=== PATIENT | male | born 1940 | race African-American/Black ===

== ENCOUNTER 2017-05-31 18:52 | Emergency (ER) | payer MEDICARE ==
[~2017-05-31] VITALS: Ht 185.4 cm; Wt 91.0 kg
[2017-05-31] MEDS ORDERED: ACETAMINOPHEN 325MG TABLET PO ONE (21:00)
[2017-05-31] MEDS ORDERED: LEVOFLOXACIN 750MG PREMIX 150 ML IV SCH (22:28)
[2017-05-31 22:30] VITALS: BP 131/62
[2017-05-31] MEDS ORDERED: LEVOFLOXACIN 250MG TABLET PO ONE (22:45)
== END 2017-05-31 22:51 | disposition home or self-care (01) ==
LOC: ER 19:34
DX: N45.1 Epididymitis (principal); N45.2 Orchitis; N43.3 Hydrocele, unspecified; Z88.5 Allergy status to narcotic agent
CPT/HCPCS: 76870; 93976; 99284

== ENCOUNTER 2018-11-21 14:27 | Inpatient (IN) | payer MEDICARE, OTHER ==
[~2018-11-21] VITALS: Ht 182.9 cm; Wt 94.3 kg
[2018-11-21 15:41] LABS: BASOPHILS % 0.6 % (0.0-2.0); EOSINOPHILS % 0.2 % (0.0-5.0); HEMATOCRIT. 43.2 % (42.0-52.0); HEMOGLOBIN. 14.3 g/dL (14.0-18.0); MEAN CORPUSCULAR HEMOGLOBIN 28.5 pg (28.0-32.0); MEAN PLATELET VOLUME 8.2 fl (7.4-10.4); MONOCYTES % 7.4 % (2.0-8.0); NEUTROPHILS % 82.8 % (40.0-76.0); PLATELET 299 x1000/uL (130-400); RED BLOOD CELL COUNT 5.02 mill/uL (4.7-6.1)
[2018-11-21 15:44] LABS: CHLORIDE 113 mEq/L (98-107)
[2018-11-21] MEDS ORDERED: DILTIAZEM HCL 90MG TABLET PO ONE (16:15)
[2018-11-21] MEDS ORDERED: DILTIAZEM HCL 5MG/ML 5ML VIAL IV ONE (16:15)
[2018-11-21] MEDS ORDERED: ASPIRIN 81MG TABLET PO ONE (17:15)
[2018-11-21 20:10] VITALS: BP 124/72
[2018-11-21 20:20] VITALS: BP 124/72
[2018-11-21] MEDS ORDERED: CLONIDINE 0.1MG TABLET PO PRN (21:45)
[2018-11-22] VITALS: BP 121/67
[2018-11-22] MEDS: ZOLPIDEM TARTRATE 5MG TABLET PO PRN (00:13)
[2018-11-22] MEDS: DILTIAZEM HCL 30MG TABLET PO SCH ×2 (00:13→06:38)
[2018-11-22 00:14] LABS: CREATINE KINASE MB FRACTION 4.7 ng/mL (0.5-3.6)
[2018-11-22] MEDS ORDERED: DEXTROSE 50% WATER 50ML SYRINGE IV PRN (03:00)
[2018-11-22 04:00] VITALS: BP 130/70
[2018-11-22] MEDS: BLOOD SUGAR DIAGNOSTIC STRIP TEST SCH ×4 (06:39→20:54)
[2018-11-22] MEDS: INSULIN LISPRO 100 UNITS/ML SUBCUT SCH ×4 (07:50→20:54)
[2018-11-22 08:00] VITALS: BP 126/60
[2018-11-22 08:13] LABS: CREATINE KINASE MB FRACTION 4.1 ng/mL (0.5-3.6)
[2018-11-22] MEDS: ENOXAPARIN 40MG/0.4ML SYR SUBCUT SCH (08:59)
[2018-11-22 12:00] VITALS: BP 140/69
[2018-11-22 16:00] VITALS: BP 115/63
[2018-11-22 20:00] VITALS: BP 118/77
[2018-11-22] MEDS: METOPROLOL TARTRATE 25MG TABLET PO SCH (20:42)
[2018-11-23] VITALS: BP 126/66
[2018-11-23] MEDS: ZOLPIDEM TARTRATE 5MG TABLET PO PRN (00:29)
[2018-11-23] MEDS ORDERED: HALOPERIDOL LACTATE 5MG/ML VIAL IM NR (02:15)
[2018-11-23] MEDS ORDERED: DIPHENHYDRAMINE 50MG/ML VIAL IV PRN (02:15)
[2018-11-23 04:00] VITALS: BP 130/69
[2018-11-23] MEDS: BLOOD SUGAR DIAGNOSTIC STRIP TEST SCH ×2 (06:27→12:20)
[2018-11-23 07:03] LABS: BASOPHILS % 1.1 % (0.0-2.0); EOSINOPHILS % 5.1 % (0.0-5.0); HEMATOCRIT. 38.2 % (42.0-52.0); HEMOGLOBIN. 12.9 g/dL (14.0-18.0); LYMPHOCYTES % 15.1 % (20.0-50.0); MEAN CORPUSCULAR HEMOGLOBIN 28.7 pg (28.0-32.0); MEAN CORPUSCULAR VOLUME 84.9 fL (80.0-94.0); MEAN PLATELET VOLUME 8.6 fl (7.4-10.4); MONOCYTES % 8.4 % (2.0-8.0); NEUTROPHILS % 70.3 % (40.0-76.0); PLATELET 255 x1000/uL (130-400); RED CELL DISTRIBUTION WIDTH 15.9 % (11.6-14.6)
[2018-11-23] MEDS: INSULIN LISPRO 100 UNITS/ML SUBCUT SCH ×2 (07:47→12:50)
[2018-11-23 08:00] VITALS: BP_SYST 119; BP_SYST 153; BP_DIAS 53; BP_DIAS 64
[2018-11-23] MEDS: ENOXAPARIN 40MG/0.4ML SYR SUBCUT SCH (09:14)
[2018-11-23] MEDS: METOPROLOL TARTRATE 25MG TABLET PO SCH (09:14)
[2018-11-23 12:00] VITALS: BP 130/77
== END 2018-11-23 15:55 | disposition left against medical advice (07) | DRG 683 ==
LOC: ER 14:27 → 6WST 17:15 → EDBEDREQ 17:17 → ENRESERV 18:50
PROVIDERS: ADMIT Internal Medicine; ATTEND Internal Medicine
DX: N17.9 Acute kidney failure, unspecified (principal); M62.82 Rhabdomyolysis; I45.2 Bifascicular block; R07.89 Other chest pain; Z53.21 Procedure and treatment not carried out due to patient leaving prior to being seen by health care provider; I48.91 Unspecified atrial fibrillation; E87.8 Other disorders of electrolyte and fluid balance, not elsewhere classified; N18.2 Chronic kidney disease, stage 2 (mild); Z87.891 Personal history of nicotine dependence; Z98.84 Bariatric surgery status
CPT/HCPCS: 36415; 71045; 80048; 80061; 82550; 82553; 82962; 83036; 83735; 83880; 84484; 93005; 93306; 96374; 99285; J1200; J1630; J1650; J3490

== ENCOUNTER 2018-11-26 03:31 | Emergency (ER) | payer MEDICARE, OTHER ==
[~2018-11-26] VITALS: Ht 167.6 cm; Wt 94.0 kg
[2018-11-26 04:32] LABS: HEMATOCRIT 42.3 % (42.0-52.0); HEMOGLOBIN 14.1 g/dL (14.0-18.0); MEAN CORPUSCULAR HEMOGLOBIN 28.7 pg (28.0-32.0); MEAN CORPUSCULAR VOLUME 85.8 fL (80.0-94.0); PLATELET 324 x1000/uL (130-400); RED BLOOD CELL COUNT 4.93 mill/uL (4.7-6.1); RED CELL DISTRIBUTION WIDTH 16.3 % (11.6-14.6)
[2018-11-26 04:39] LABS: CHLORIDE 113 mEq/L (98-107)
[2018-11-26 05:24] VITALS: BP 123/68
== END 2018-11-26 05:25 | disposition home or self-care (01) ==
LOC: ER 03:31
DX: R00.2 Palpitations (principal)
CPT/HCPCS: 36415; 85027; 93005; 99284

== ENCOUNTER 2018-12-22 10:40 | Inpatient (IN) | payer MEDICARE, OTHER ==
[~2018-12-22] VITALS: Ht 188 cm; Wt 83.9 kg
[2018-12-22] VITALS (41 sets, daily range): BP systolic 75–148; BP diastolic 36–76
[2018-12-22] MEDS ORDERED: HALOPERIDOL LACTATE 5MG/ML VIAL IM ONE ×2 (11:30→14:15)
[2018-12-22] MEDS ORDERED: SODIUM CHLORIDE 0.9% 1000ML BAG (SEPSIS BOLUS) IV ONE (11:30)
[2018-12-22] MEDS ORDERED: LORAZEPAM 2MG/ML CPJ IM ONE (11:30)
[2018-12-22] MEDS ORDERED: DEXT 5%/0.45% NACL 500ML 1,000 ML IV ONE (11:45)
[2018-12-22 12:07] LABS: BASOPHILS % 0.4 % (0.0-2.0); HEMATOCRIT. 45.4 % (42.0-52.0); HEMOGLOBIN. 15.1 g/dL (14.0-18.0); LYMPHOCYTES % 7.5 % (20.0-50.0); MEAN CORPUSCULAR HEMOGLOBIN 28.5 pg (28.0-32.0); MEAN CORPUSCULAR VOLUME 85.9 fL (80.0-94.0); MEAN PLATELET VOLUME 8.3 fl (7.4-10.4); MONOCYTES % 6.1 % (2.0-8.0); PLATELET 336 x1000/uL (130-400); RED BLOOD CELL COUNT 5.29 mill/uL (4.7-6.1); RED CELL DISTRIBUTION WIDTH 17.4 % (11.6-14.6)
[2018-12-22 12:15] LABS: INR 2.2; PROTHROMBIN TIME 22.1 sec (9.6-11.0)
[2018-12-22 12:16] LABS: CHLORIDE 126 mEq/L (98-107)
[2018-12-22 12:19] LABS: ETHANOL BLOOD < 10 mg/dL
[2018-12-22 12:22] LABS: CLARITY URINE CLEAR (CLEAR); COLOR URINE YELLOW (YELLOW); KETONES URINE 2+ (NEGATIVE); LEUKOCYTE ESTERASE URINE NEGATIVE (NEGATIVE); NITRITE URINE NEGATIVE (NEGATIVE); OCCULT BLOOD URINE NEGATIVE (NEGATIVE); PROTEIN URINE NEGATIVE (NEGATIVE); SPECIFIC GRAVITY URINE 1.016 (1.005-1.030); UROBILINOGEN URINE 0.2 E.U./dL (0.2-1.0)
[2018-12-22] MEDS ORDERED: SODIUM BICARBONATE 8.4% 1 MEQ/ML 50ML SYR IV ONE (12:45)
[2018-12-22 13:03] LABS: *AMPHETAMINES SCREEN URINE NEGATIVE (NEGATIVE); *BARBITURATES SCREEN URINE NEGATIVE (NEGATIVE); *BENZODIAZEPINES SCREEN URINE NEGATIVE (NEGATIVE); *COCAINE SCREEN URINE NEGATIVE (NEGATIVE); METHADONE URINE SCREEN NEGATIVE (NEGATIVE); OPIATES URINE SCREEN NEGATIVE (NEGATIVE)
[2018-12-22 13:05] LABS: CANNABINOID URINE SCREEN NEGATIVE (NEGATIVE); PHENCYCLIDINE URINE SCREEN NEGATIVE (NEGATIVE)
[2018-12-22 13:22] LABS: BG BASE EXCESS -13.9 mmol/L (-2.0-2.0); BG CARBOXYHEMOGLOBIN 0.5 % (0.5-1.5); BG DEOXYHEMOGLOBIN 2.3 % (0.0-5.0); BG FRACTION INSPIRED OXYGEN 21; BG HCO3 ACT 7.4 mmol/L (22.0-26.0); BG METHEMOGLOBIN 0.2 % (0.0-1.5); BG OXYGEN SATURATION 97.7 % (92.0-98.5); BG PH 7.408 (7.350-7.450); BG PO2 103.3 mmHg (75.0-100.0); BG SAMPLE SITE RIGHT BRACHIAL; BG TOTAL HEMOGLOBIN 13.6 g/dL (12.0-18.0); BG VENT MODE ROOM AIR
[2018-12-22 13:55] LABS: CHLORIDE 129 mEq/L (98-107)
[2018-12-22] MEDS ORDERED: LIDOCAINE HCL 1% 20ML VIAL (Pyxis) INJ ONE (14:04)
[2018-12-22] MEDS ORDERED: SODIUM BICARBONATE 4% (2.4MEQ) 5ML VIAL IV ONE (14:04)
[2018-12-22] MEDS ORDERED: LORAZEPAM 2MG/ML CPJ IV ONE (14:15)
[2018-12-22] MEDS ORDERED: SODIUM BICARBONATE 150 MEQ in DEXTROSE 5% WATER 1,000 ML IV SCH (14:30)
[2018-12-22] MEDS ORDERED: ONDANSETRON HCL 4MG/2ML INJ IV PRN (14:30)
[2018-12-22] MEDS: DEXT 5%/0.45% NACL 1000ML 1,000 ML IV SCH (15:08)
[2018-12-22] MEDS: PANTOPRAZOLE SODIUM 40 MG/VIAL IV SCH (17:32)
[2018-12-22] MEDS: SODIUM BICARBONATE 150 MEQ in DEXTROSE 5% WATER 1,000 ML IV SCH (17:54)
[2018-12-22 19:44] LABS: CLARITY URINE CLEAR (CLEAR); COLOR URINE YELLOW (YELLOW); KETONES URINE 1+ (NEGATIVE); LEUKOCYTE ESTERASE URINE 2+ (NEGATIVE); NITRITE URINE NEGATIVE (NEGATIVE); OCCULT BLOOD URINE NEGATIVE (NEGATIVE); PROTEIN URINE NEGATIVE (NEGATIVE); SPECIFIC GRAVITY URINE 1.016 (1.005-1.030); UROBILINOGEN URINE 0.2 E.U./dL (0.2-1.0)
[2018-12-22] MEDS ORDERED: NOREPINEPHRINE 16 MG in DEXT 5% WATER 234 ML IV PRN (21:01)
[2018-12-22] MEDS: LORAZEPAM 2MG/ML CPJ IV PRN (22:30)
[2018-12-22 22:57] LABS: CHLORIDE 114 mEq/L (98-107)
[2018-12-23] VITALS (59 sets, daily range): BP systolic 87–138; BP diastolic 51–105
[2018-12-23] MEDS: SODIUM BICARBONATE 150 MEQ in DEXTROSE 5% WATER 1,000 ML IV SCH ×2 (00:09→06:07)
[2018-12-23] MEDS ORDERED: POTASSIUM CHLORIDE INJ 40 MEQ in DEXT 5% WATER 500 ML IV NR (02:00)
[2018-12-23] MEDS: LORAZEPAM 2MG/ML CPJ IV PRN ×3 (03:14→15:15)
[2018-12-23 05:44] LABS: BASOPHILS % 0.3 % (0.0-2.0); HEMATOCRIT. 36.8 % (42.0-52.0); HEMOGLOBIN. 12.6 g/dL (14.0-18.0); LYMPHOCYTES % 7.3 % (20.0-50.0); MEAN CORPUSCULAR HEMOGLOBIN 28.7 pg (28.0-32.0); MEAN PLATELET VOLUME 8.5 fl (7.4-10.4); MONOCYTES % 9.2 % (2.0-8.0); NEUTROPHILS % 83.2 % (40.0-76.0); PLATELET 259 x1000/uL (130-400); RED BLOOD CELL COUNT 4.39 mill/uL (4.7-6.1); RED CELL DISTRIBUTION WIDTH 17.7 % (11.6-14.6)
[2018-12-23 05:47] LABS: PROTHROMBIN TIME 20.1 sec (9.6-11.0)
[2018-12-23 05:50] LABS: CHLORIDE 112 mEq/L (98-107)
[2018-12-23] MEDS ORDERED: POTASSIUM CHLORIDE 20MEQ/PACKET PO NR (08:00)
[2018-12-23 08:02] LABS: BG FRACTION INSPIRED OXYGEN 21
[2018-12-23 08:11] LABS: BG SAMPLE SITE Left Radial
[2018-12-23 08:26] LABS: BG PCO2 16.3 mmHg (35.0-45.0)
[2018-12-23 08:27] LABS: BG PO2 100.7 mmHg (75.0-100.0)
[2018-12-23 08:28] LABS: BG BASE EXCESS -8.5 mmol/L (-2.0-2.0); BG HCO3 ACT 12.1 mmol/L (22.0-26.0)
[2018-12-23 08:29] LABS: BG TOTAL HEMOGLOBIN 12.6 g/dL (12.0-18.0)
[2018-12-23 08:30] LABS: BG OXYGEN SATURATION 97.4 % (92.0-98.5)
[2018-12-23 08:31] LABS: BG CARBOXYHEMOGLOBIN 0.3 % (0.5-1.5); BG METHEMOGLOBIN 0.1 % (0.0-1.5)
[2018-12-23 08:32] LABS: BG DEOXYHEMOGLOBIN 2.6 % (0.0-5.0)
[2018-12-23 08:39] LABS: BG CARBOXYHEMOGLOBIN 0.4 % (0.5-1.5); BG DEOXYHEMOGLOBIN 6.5 % (0.0-5.0); BG FRACTION INSPIRED OXYGEN 21; BG HCO3 ACT 31.3 mmol/L (22.0-26.0); BG METHEMOGLOBIN 0.1 % (0.0-1.5); BG OXYGEN SATURATION 93.5 % (92.0-98.5); BG PCO2 34.6 mmHg (35.0-45.0); BG PH 7.574 (7.350-7.450); BG PO2 62.1 mmHg (75.0-100.0); BG SAMPLE SITE RIGHT BRACHIAL; BG TOTAL HEMOGLOBIN 12.7 g/dL (12.0-18.0); BG VENT MODE ROOM AIR
[2018-12-23] MEDS: PANTOPRAZOLE SODIUM 40 MG/VIAL IV SCH ×2 (09:31→10:55)
[2018-12-23] MEDS ORDERED: POTASSIUM CHLORIDE INJ 40 MEQ in DEXT 5% WATER 250 ML IV NR (10:00)
[2018-12-23] MEDS: DEXT 5%/0.45% NACL 1000ML 1,000 ML IV SCH ×2 (13:09→23:42)
[2018-12-23] MEDS: HALOPERIDOL LACTATE 5MG/ML VIAL IM PRN (23:34)
[2018-12-24] VITALS (32 sets, daily range): BP systolic 85–187; BP diastolic 49–113
[2018-12-24 08:24] LABS: BASOPHILS % 0.3 % (0.0-2.0); EOSINOPHILS % 1.5 % (0.0-5.0); HEMATOCRIT. 37.8 % (42.0-52.0); HEMOGLOBIN. 12.5 g/dL (14.0-18.0); LYMPHOCYTES % 7.6 % (20.0-50.0); MEAN CORPUSCULAR HEMOGLOBIN 28.7 pg (28.0-32.0); MEAN CORPUSCULAR VOLUME 86.4 fL (80.0-94.0); MEAN PLATELET VOLUME 8.3 fl (7.4-10.4); MONOCYTES % 10.9 % (2.0-8.0); NEUTROPHILS % 79.7 % (40.0-76.0); PLATELET 232 x1000/uL (130-400); RED BLOOD CELL COUNT 4.37 mill/uL (4.7-6.1); RED CELL DISTRIBUTION WIDTH 17.7 % (11.6-14.6)
[2018-12-24] MEDS: PANTOPRAZOLE SODIUM 40 MG/VIAL IV SCH (08:32)
[2018-12-24] MEDS: HALOPERIDOL LACTATE 5MG/ML VIAL IM PRN ×2 (08:32→14:19)
[2018-12-24] MEDS: DEXTROSE 5% WATER 1,000 ML IV SCH (10:00)
[2018-12-24] MEDS: LORAZEPAM 2MG/ML CPJ IV PRN ×2 (10:00→14:19)
[2018-12-24] MEDS ORDERED: POTASSIUM CHLORIDE INJ 40 MEQ in DEXT 5% WATER 250 ML IV NR (10:00)
[2018-12-24] MEDS ORDERED: THIAMINE HCL 100 MG in SODIUM CHLORIDE 0.9% 49 ML IV SCH (21:00)
[2018-12-25] VITALS (16 sets, daily range): BP systolic 94–155; BP diastolic 55–95
[2018-12-25] MEDS: LORAZEPAM 2MG/ML CPJ IV PRN ×4 (00:32→15:34)
[2018-12-25] MEDS: DEXTROSE 5% WATER 1,000 ML IV SCH ×2 (02:34→17:52)
[2018-12-25 06:12] LABS: BASOPHILS % 0.4 % (0.0-2.0); EOSINOPHILS % 3.7 % (0.0-5.0); HEMATOCRIT. 36.5 % (42.0-52.0); LYMPHOCYTES % 13.9 % (20.0-50.0); MEAN CORPUSCULAR HEMOGLOBIN 28.4 pg (28.0-32.0); MEAN CORPUSCULAR VOLUME 86.5 fL (80.0-94.0); MEAN PLATELET VOLUME 8.3 fl (7.4-10.4); MONOCYTES % 8.9 % (2.0-8.0); NEUTROPHILS % 73.1 % (40.0-76.0); PLATELET 203 x1000/uL (130-400); RED BLOOD CELL COUNT 4.22 mill/uL (4.7-6.1); RED CELL DISTRIBUTION WIDTH 17.5 % (11.6-14.6)
[2018-12-25] MEDS: HALOPERIDOL LACTATE 5MG/ML VIAL IM PRN ×2 (08:47→17:24)
[2018-12-25] MEDS: PANTOPRAZOLE SODIUM 40 MG/VIAL IV SCH (08:47)
[2018-12-25] MEDS ORDERED: POTASSIUM CHLORIDE INJ 40 MEQ in DEXT 5% WATER 250 ML IV NR (10:00)
[2018-12-26] VITALS (12 sets, daily range): BP systolic 109–156; BP diastolic 60–100
[2018-12-26] MEDS: HALOPERIDOL LACTATE 5MG/ML VIAL IM PRN (00:43)
[2018-12-26] MEDS: LORAZEPAM 2MG/ML CPJ IV PRN (06:27)
[2018-12-26 06:42] LABS: BASOPHILS % 0.5 % (0.0-2.0); EOSINOPHILS % 5.3 % (0.0-5.0); HEMOGLOBIN. 12.1 g/dL (14.0-18.0); LYMPHOCYTES % 13.6 % (20.0-50.0); MEAN CORPUSCULAR HEMOGLOBIN 28.5 pg (28.0-32.0); MEAN CORPUSCULAR VOLUME 87.6 fL (80.0-94.0); MEAN PLATELET VOLUME 8.6 fl (7.4-10.4); NEUTROPHILS % 71.6 % (40.0-76.0); PLATELET 198 x1000/uL (130-400); RED BLOOD CELL COUNT 4.23 mill/uL (4.7-6.1); RED CELL DISTRIBUTION WIDTH 17.2 % (11.6-14.6)
[2018-12-26 07:03] LABS: PHOSPHORUS 1.9 mg/dL (2.5-4.9)
[2018-12-26] MEDS: FAMOTIDINE 20MG/2ML VIAL IV SCH (09:05)
[2018-12-26] MEDS: DEXTROSE 5% WATER 1,000 ML IV SCH (09:06)
[2018-12-26] MEDS ORDERED: POTASSIUM PHOS,M-BASIC-D-BASIC 15 MMOL in DEXT 5% WATER 245 ML IV NR (11:00)
[2018-12-26] MEDS: QUETIAPINE FUMARATE 25MG TABLET PO SCH (20:47)
[2018-12-26] MEDS: RISPERIDONE 0.5MG TABLET PO SCH (20:47)
[2018-12-27] VITALS (12 sets, daily range): BP systolic 95–145; BP diastolic 54–90
[2018-12-27 08:28] LABS: BASOPHILS % 0.5 % (0.0-2.0); EOSINOPHILS % 3.7 % (0.0-5.0); HEMATOCRIT. 36.7 % (42.0-52.0); HEMOGLOBIN. 12.1 g/dL (14.0-18.0); LYMPHOCYTES % 12.7 % (20.0-50.0); MEAN CORPUSCULAR HEMOGLOBIN 28.2 pg (28.0-32.0); MEAN CORPUSCULAR VOLUME 85.8 fL (80.0-94.0); MEAN PLATELET VOLUME 7.9 fl (7.4-10.4); MONOCYTES % 9.2 % (2.0-8.0); NEUTROPHILS % 73.9 % (40.0-76.0); PLATELET 200 x1000/uL (130-400); RED BLOOD CELL COUNT 4.28 mill/uL (4.7-6.1); RED CELL DISTRIBUTION WIDTH 17.3 % (11.6-14.6)
[2018-12-27 08:46] LABS: CHLORIDE 111 mEq/L (98-107)
[2018-12-27] MEDS: QUETIAPINE FUMARATE 25MG TABLET PO SCH ×2 (09:57→21:39)
[2018-12-27] MEDS: FAMOTIDINE 20MG/2ML VIAL IV SCH (09:57)
[2018-12-27] MEDS ORDERED: POTASSIUM CHLORIDE 20MEQ TABLET SR PO NR (15:00)
[2018-12-27] MEDS ORDERED: POTASSIUM CHLORIDE INJ 40 MEQ in DEXT 5% WATER 250 ML IV NR (16:30)
[2018-12-27] MEDS: RISPERIDONE 0.5MG TABLET PO SCH (21:39)
[2018-12-28] VITALS (20 sets, daily range): BP systolic 97–144; BP diastolic 58–92
[2018-12-28 06:22] LABS: PHOSPHORUS 2.1 mg/dL (2.5-4.9)
[2018-12-28] MEDS ORDERED: LIDOCAINE HCL 1% 20ML VIAL (Pyxis) INJ ONE (08:08)
[2018-12-28] MEDS: FAMOTIDINE 20MG/2ML VIAL IV SCH (09:39)
[2018-12-28] MEDS: QUETIAPINE FUMARATE 25MG TABLET PO SCH (09:40)
[2018-12-28] MEDS: RISPERIDONE 0.5MG TABLET PO SCH (17:18)
[2018-12-28] MEDS ORDERED: DIPHENHYDRAMINE 50MG/ML VIAL IV PRN (20:15)
[2018-12-28] MEDS: RISPERIDONE 1MG TABLET PO SCH (21:00)
[2018-12-28] MEDS: RISPERIDONE 0.5MG TABLET PO NR ×2 (21:17→21:23)
[2018-12-29] VITALS (12 sets, daily range): BP systolic 59–158; BP diastolic 39–98
[2018-12-29 05:49] LABS: BASOPHILS % 0.4 % (0.0-2.0); EOSINOPHILS % 3.4 % (0.0-5.0); HEMATOCRIT. 41.5 % (42.0-52.0); HEMOGLOBIN. 13.8 g/dL (14.0-18.0); LYMPHOCYTES % 15.5 % (20.0-50.0); MEAN CORPUSCULAR HEMOGLOBIN 28.8 pg (28.0-32.0); MEAN CORPUSCULAR VOLUME 86.9 fL (80.0-94.0); MEAN PLATELET VOLUME 8.7 fl (7.4-10.4); MONOCYTES % 10.4 % (2.0-8.0); NEUTROPHILS % 70.3 % (40.0-76.0); PLATELET 191 x1000/uL (130-400); RED BLOOD CELL COUNT 4.78 mill/uL (4.7-6.1); RED CELL DISTRIBUTION WIDTH 17.6 % (11.6-14.6)
[2018-12-29] MEDS: RISPERIDONE 0.5MG TABLET PO SCH ×2 (09:00→11:36)
[2018-12-29] MEDS: HALOPERIDOL LACTATE 5MG/ML VIAL IM PRN (09:52)
[2018-12-29] MEDS: FAMOTIDINE 20MG/2ML VIAL IV SCH ×2 (09:52→11:35)
[2018-12-29] MEDS: ACETAMINOPHEN 325MG TABLET PO PRN (19:52)
[2018-12-29] MEDS: RISPERIDONE 1MG TABLET PO SCH (20:26)
[2018-12-30] VITALS (17 sets, daily range): BP systolic 81–148; BP diastolic 53–78
[2018-12-30] MEDS: ACETAMINOPHEN 325MG TABLET PO PRN (04:00)
[2018-12-30] MEDS: RISPERIDONE 0.5MG TABLET PO SCH (13:00)
[2018-12-30] MEDS ORDERED: CEFTRIAXONE 1 G PREMIX 50 ML IV SCH (14:00)
[2018-12-30] MEDS: HALOPERIDOL LACTATE 5MG/ML VIAL IM PRN ×2 (17:05→23:12)
[2018-12-30] MEDS: RISPERIDONE 1MG TABLET PO SCH (21:09)
[2018-12-31] VITALS (8 sets, daily range): BP systolic 88–145; BP diastolic 50–82
[2018-12-31] MEDS: RISPERIDONE 0.5MG TABLET PO SCH (08:08)
[2018-12-31] MEDS: FAMOTIDINE 20MG/2ML VIAL IV SCH (08:08)
== END 2018-12-31 15:10 | DRG 917 ==
LOC: ER 10:40 → MICUNO 12:58 → EEVIPCON 12:58 → EDBEDREQ 13:02 → EDBEDREQTM 13:02 → EDBEDREQSVC 13:02 → SUPCPDRO 14:20 → ENRESERV 14:44 → 5EST 12-23 08:03
PROVIDERS: ADMIT Hospitalist; ATTEND Hospitalist
PROC: 06HY33Z Insertion of Infusion Device into Lower Vein, Percutaneous Approach (ICD-10-PCS; principal; 2018-12-22)
PROC: B54BZZA Ultrasonography of Right Lower Extremity Veins, Guidance (ICD-10-PCS; 2018-12-22)
PROC: 5A1D70Z Performance of Urinary Filtration, Intermittent, Less than 6 Hours Per Day (ICD-10-PCS; 2018-12-22)
PROC: 05HY33Z Insertion of Infusion Device into Upper Vein, Percutaneous Approach (ICD-10-PCS; 2018-12-28)
PROC: B54MZZA Ultrasonography of Right Upper Extremity Veins, Guidance (ICD-10-PCS; 2018-12-28)
DX: T39.011A Poisoning by aspirin, accidental (unintentional), initial encounter (principal); G92 Toxic encephalopathy; J96.00 Acute respiratory failure, unspecified whether with hypoxia or hypercapnia; N18.6 End stage renal disease; E87.2 Acidosis; E87.0 Hyperosmolality and hypernatremia; N17.9 Acute kidney failure, unspecified; N39.0 Urinary tract infection, site not specified; F23 Brief psychotic disorder; I12.0 Hypertensive chronic kidney disease with stage 5 chronic kidney disease or end stage renal disease; D68.9 Coagulation defect, unspecified; I69.354 Hemiplegia and hemiparesis following cerebral infarction affecting left non-dominant side; E87.6 Hypokalemia; F03.90 Unspecified dementia, unspecified severity, without behavioral disturbance, psychotic disturbance, mood disturbance, and anxiety; R62.7 Adult failure to thrive; E83.39 Other disorders of phosphorus metabolism; D72.829 Elevated white blood cell count, unspecified; R73.9 Hyperglycemia, unspecified; R45.1 Restlessness and agitation; I95.9 Hypotension, unspecified; Z98.84 Bariatric surgery status; Z78.1 Physical restraint status; Z99.2 Dependence on renal dialysis; Y92.89 Other specified places as the place of occurrence of the external cause; Z68.23 Body mass index [BMI] 23.0-23.9, adult
CPT/HCPCS: 36415; 36600; 71045; 76937; 80048; 80305; 80307; 80320; 80329; 81003; 82140; 82375; 82805; 83036; 83605; 83735; 84100; 84439; 84443; 84484; 92610; 93005; 96374; 97162; 97166; 97530; 97535; 99291; C1725; C1752; C9113; J0696; J1200; J1630; J1642; J2060; J2405; J3411; J3480; J3490; J7030; J7040; J7060; J7070; A4315; G0480

== ENCOUNTER 2019-01-24 11:06 | Emergency (ER) | payer MEDICARE, OTHER ==
[~2019-01-24] VITALS: Ht 185.4 cm; Wt 87.0 kg
[2019-01-24] MEDS ORDERED: SODIUM CHLORIDE 0.9% 1,000 ML IV ONE (14:15)
[2019-01-24 14:52] LABS: HEMATOCRIT. 38.3 % (42.0-52.0); HEMOGLOBIN. 12.6 g/dL (14.0-18.0); MEAN CORPUSCULAR HEMOGLOBIN 28.5 pg (28.0-32.0); MEAN CORPUSCULAR VOLUME 86.9 fL (80.0-94.0); MEAN PLATELET VOLUME 8.6 fl (7.4-10.4); PLATELET 248 x1000/uL (130-400); RED BLOOD CELL COUNT 4.41 mill/uL (4.7-6.1); RED CELL DISTRIBUTION WIDTH 17.9 % (11.6-14.6)
[2019-01-24 14:59] LABS: CHLORIDE 111 mEq/L (98-107)
[2019-01-24 15:21] LABS: PLATELET ESTIMATE NORMAL
[2019-01-24 16:30] VITALS: BP 109/72
== END 2019-01-24 17:50 | disposition home or self-care (01) ==
LOC: ER 11:06
DX: K11.20 Sialoadenitis, unspecified (principal); R10.9 Unspecified abdominal pain; F03.90 Unspecified dementia, unspecified severity, without behavioral disturbance, psychotic disturbance, mood disturbance, and anxiety; Z86.73 Personal history of transient ischemic attack (TIA), and cerebral infarction without residual deficits; Z98.84 Bariatric surgery status
CPT/HCPCS: 36415; 70490; 74176; 80053; 83690; 85025; 93005; 99291; J7030